=== PATIENT | male | born 1960 | race Two or more races ===

== ENCOUNTER 2024-03-28 17:32 | Emergency (ER) | payer OTHER ==
[~2024-03-28] VITALS: Ht 172.7 cm; Wt 86.2 kg
[2024-03-28] MEDS ORDERED: AZOR 10-20 MG1 EACH (18:16)
[2024-03-28] MEDS ORDERED: KETOROLAC TROMETHAMINE 30 MG VIAL IM ONE (19:15)
[2024-03-28] MEDS ORDERED: TRAMADOL HCL 50 MG TABLET PO ONE (19:15)
[2024-03-28] MEDS ORDERED: DEXAMETHASONE SODIUM PHOSPHATE 4 MG/ML VIAL IM ONE (19:15)
== END 2024-03-28 21:02 | disposition home or self-care (01) ==
LOC: ER 17:34
DX: M10.9 Gout, unspecified (principal)